=== PATIENT | female | born 1980 | race Caucasian/White ===

== ENCOUNTER 2022-05-03 19:54 | Emergency (ER) | payer OTHER ==
[~2022-05-03] VITALS: Ht 160 cm; Wt 89.8 kg
[2022-05-03 20:08] VITALS: BP 136/89
--- NOTE | 2022-05-03 20:15 | NUR ---
PT TO LOBBY.
--- NOTE | 2022-05-03 21:02 | NUR ---
PT TAKEN TO RAD VIA W/C
--- NOTE | 2022-05-03 23:06 | NUR ---
PT AMBULATED TO BED 4 WITH NURSE
[2022-05-03 23:55] LABS: BASOPHILS # (AUTO) 0.1 K/uL (0.00-0.22); BASOPHILS % (AUTO) 1.2 % (0.0-2.0); EOSINOPHILS # (AUTO) 0.5 K/uL (0-0.4); EOSINOPHILS % (AUTO) 7.2 % (0.0-4.0); HEMATOCRIT 40.4 % (36-48); HEMOGLOBIN 13.7 g/dL (12.0-16.0); LYMPHOCYTES # (AUTO) 2.7 K/uL (2.5-16.5); LYMPHOCYTES % (AUTO) 42.2 % (20.5-51.1); MEAN CORPUSCULAR HEMOGLOBIN 30 pg (27-31); MEAN CORPUSCULAR HGB CONC 34 g/dL (33-37); MEAN CORPUSCULAR VOLUME 89.5 fL (80-94); MONOCYTES # (AUTO) 0.4 K/uL (0.8-1.0); MONOCYTES % (AUTO) 5.9 % (1.7-9.3); NEUTROPHILS # (AUTO) 2.8 K/uL (1.8-7.7); NEUTROPHILS % (AUTO) 43.5 % (42.2-75.2); PLATELET COUNT (AUTO) 283 K/uL (140-450); RED BLOOD CELL COUNT(AUTO) 4.52 MIL/uL (4.20-5.40); RED CELL DISTRIBUTION WIDTH 13.5 % (11.6-13.7); WHITE BLOOD COUNT (AUTO) 6.4 K/uL (4.8-10.8)
[2022-05-03] MEDS: ASPIRIN 325 MG TAB PO ONE (23:55)
[2022-05-03] MEDS: diazePAM 5 MG TAB PO ONE (23:57)
[2022-05-04 00:21] LABS: ALBUMIN 3.8 g/dL (3.4-5.0); ANION GAP 9.8 (8-16); ASPARTATE AMINOTRANSFERASE 23 U/L (15-37); CHLORIDE 103 mmol/L (98-107); CREATININE 0.6 mg/dL (0.6-1.3); GFR ARICAN-AMERICAN 142 mL/min (>90); GLUCOSE 94 mg/dL (74-106); LIPASE 52 U/L (73-393); POTASSIUM 3.8 mmol/L (3.5-5.1); SODIUM SERUM 136 mmol/L (136-145); TOTAL BILIRUBIN 0.7 mg/dL (0.0-1.0); UREA NITROGEN, BLOOD 10 mg/dL (7-18)
--- NOTE | 2022-05-04 00:35 | NUR ---
42 y/o BIB SELF FOR LEFT SIDE CHEST PAIN THAT STARTS AT TOP OF SHOULDER THEN MOVES DOWN TOWARD BREAST X 7 DAYS. PT STATES SHE ALSO HAS SOME ITCHING ON LEFT BACK. PT STATES PAIN SHARP. PT DENIES SOB/F/N/V/DIARRHEA. PT IS a&O X4 , AMBULATORY . PMH: ASTHMA, BREAST LIFT IN 2010 RX: DENIES
--- NOTE | 2022-05-04 02:36 | NUR ---
urine cup provided
--- NOTE | 2022-05-04 04:40 | NUR ---
Patient appears to be resting comfortably in bed. Vital Signs within normal limits. Respirations even and unlabored.
[2022-05-04] MEDS ORDERED: ACET-5629 PO (05:34)
[2022-05-04 05:55] VITALS: BP 113/65
--- NOTE | 2022-05-04 05:55 | NUR ---
Patient discharged with v/s stable. Written and verbal after care instructions given and explained. Patient alert, oriented and verbalized understanding of instructions. Ambulatory with steady gait. All questions addressed prior to discharge. ID band removed. Patient advised to follow up with PMD. Rx of PERCOCET given. Opportunity to ask questions provided and answered.
--- NOTE | 2022-05-04 06:12 | NUR ---
The patient's care was reviewed and supervised by Karolyn Sneed RN.
== END 2022-05-04 05:55 | disposition home or self-care (01) ==
LOC: MED 19:54
DX: R07.89 Other chest pain (principal); J45.909 Unspecified asthma, uncomplicated; Z98.890 Other specified postprocedural states
CPT/HCPCS: 36415; 71045; 71250; 80053; 81025; 83690; 84484; 84703; 85025; 93005; 99285